=== PATIENT | female | born 1985 | race Two or more races ===

== ENCOUNTER 2022-09-26 16:03 | Emergency (ER) | payer OTHER ==
[~2022-09-26] VITALS: Ht 154.9 cm; Wt 56.7 kg
[2022-09-27] MEDS ORDERED: TAMS0.4C PO (00:44)
== END 2022-09-27 01:01 | disposition home or self-care (01) ==
LOC: ER 16:03
DX: R10.2 Pelvic and perineal pain (principal); N20.0 Calculus of kidney